=== PATIENT | male | born 1970 | race Caucasian/White ===

== ENCOUNTER 2018-06-08 19:20 | Inpatient (IN) | payer SELFPAY ==
[~2018-06-08] VITALS: Ht 182.9 cm; Wt 87.7 kg
[2018-06-08] MEDS ORDERED: NALOXONE 0.4 MG/ML VIAL. IV ONE (20:45)
[2018-06-08] MEDS ORDERED: MVI, ADULT NO.4 WITH VIT K 10 ML, FOLIC ACID INJ 1 MG, THIAMINE INJ 100 MG in IV NORMAL... IV ONE ×4 (20:45)
[2018-06-08 20:59] LABS: BASO % 1 % (0-3); EOS # 0.1 x10^3/uL (0.0-0.7); EOS % 3 % (0-3); HEMATOCRIT 48.1 % (39.0-53.0); HEMOGLOBIN 16.4 g/dL (13.0-17.5); LYMPH # 1.5 x10^3/uL (1.0-4.8); LYMPH % 28 % (24-48); MEAN CORPUSCULAR HEMOGLOBIN 32 pg (25-35); MEAN CORPUSCULAR HGB CONC 34 g/dL (31-37); MEAN CORPUSCULAR VOLUME 94 fL (79-100); MONO # 0.3 x10^3/uL (0.0-1.1); MONO % 6 % (0-9); NEUT # 3.4 x10^3uL (1.8-7.7); NEUT % 64 % (31-73); PLATELET COUNT 179 x10^3/uL (140-400); RED BLOOD COUNT 5.09 x10^6/uL (4.30-5.70); RED CELL DISTRIBUTION WIDTH 13.5 % (11.5-14.5); WHITE BLOOD COUNT 5.3 x10^3/uL (4.0-11.0)
--- NOTE | 2018-06-09 00:38 | PHYS DOC ---
Past History Past Medical History: Alcoholism Past Surgical History: No Surgical History Alcohol Use: Heavy Drug Use: None Adult General Chief Complaint Chief Complaint: ALTERED MENTAL STATUS HPI HPI 48-year-old male presents via EMS with altered mental status. Patient does not really answer questions. His eyes do open spontaneously and to commands. He did say that he drank a liter of vodka and then goes back to sleep. He denies any pain. Review of Systems Review of Systems Constitutional: Denies fever or chills [] Eyes: Denies change in visual acuity, redness, or eye pain [] HENT: Denies nasal congestion or sore throat [] Respiratory: Denies cough or shortness of breath [] Cardiovascular: No additional information not addressed in HPI [] GI: Denies abdominal pain, nausea, vomiting, bloody stools or diarrhea [] : Denies dysuria or hematuria [] Musculoskeletal: Denies back pain or joint pain [] Integument: Denies rash or skin lesions [] Neurologic: Intoxicated[] Endocrine: Denies polyuria or polydipsia [] All other systems were reviewed and found to be within normal limits, except as documented in this note. Current Medications Current Medications Current Medications Medications (Trade) Dose Ordered Sig/Kai Start Time Stop Time Status Last Admin Dose Admin Multivitamins/ Minerals 10 ml/ Folic Acid 1 mg/ Thiamine HCl 100 mg/Sodium Chloride 1,011.2 ml @ 0 mls/hr 1X ONCE 06/08/18 20:45 06/08/18 20:46 DC 06/08/18 20:45 1,000 MLS/HR Naloxone HCl (Narcan) 0.4 mg 1X ONCE 06/08/18 20:45 06/08/18 20:46 DC Allergies Allergies Allergies Coded Allergies Type Severity Reaction Last Updated Verified No Known Drug Allergies 06/08/18 No Physical Exam Physical Exam Constitutional: Well developed, well nourished, no acute distress, non-toxic appearance. [] HENT: Normocephalic, atraumatic, bilateral external ears normal, oropharynx moist, no oral exudates, nose normal. [] Eyes: PERRLA, EOMI, conjunctiva normal, no discharge. [] Neck: Normal range of motion, no tenderness, supple, no stridor. [] Cardiovascular: tachycardia, no murmur [] Lungs & Thorax: Bilateral breath sounds clear to auscultation [] Abdomen: Bowel sounds normal, soft, no tenderness, no masses, no pulsatile masses. [] Skin: Warm, dry, no erythema, no rash. [] Back: No tenderness, no CVA tenderness. [] Extremities: No tenderness, no cyanosis, no clubbing, ROM intact, no edema. [] Neurologic: Alert, intoxicated [] Psychologic: Intoxicated[] Current Patient Data Vital Signs Vital Signs Date Time Temp Pulse Resp B/P (MAP) Pulse Ox O2 Delivery O2 Flow Rate FiO2 06/08/18 20:20 66 18 126/70 (88) 96 Room Air 06/08/18 19:52 97.9 EKG EKG Sinus rhythm, rate 64, normal axis, no ST elevations or depressions.[] Radiology/Procedures Radiology/Procedures [] Course & Med Decision Making Course & Med Decision Making Pertinent Labs and Imaging studies reviewed. (See chart for details) Patient's labs are unremarkable except for his alcohol of 440. We gave him a banana bag. After the patient rested woke up, he was unaware that EMS brought him to the hospital. He then stated that he has been having suicidal thoughts for a while. He has no specific plan but mention the person he was staying with had a gun and he might use that. We have ordered a psych consult. The psychiatric facilities will not take the patient was his alcohol is below 100. His repeat alcohol level was 283. We will admit him to the hospital. Dr. Michael has accepted the patient for admission. [] Dragon Disclaimer Dragon Disclaimer This electronic medical record was generated, in whole or in part, using a voice recognition dictation system. Departure Departure: Referrals: PCP,ELADIA (PCP) CHARANJIT BRAVO DO Jun 09, 2018 00:38
[2018-06-09 01:36] LABS: ALBUMIN 3.5 g/dL (3.4-5.0); BARBITURATES NEG (NEG); BENZODIAZEPINES NEG (NEG); CALCIUM 8.5 mg/dL (8.5-10.1); CANNABINOIDS NEG (NEG); COCAINE NEG (NEG); CREATININE 0.8 mg/dL (0.7-1.3); GFR 104.1; METHADONE NEG (NEG); OPIATES NEG (NEG); PHENCYCLIDINE NEG (NEG); POTASSIUM 3.7 mmol/L (3.5-5.1); TOTAL BILIRUBIN 0.5 mg/dL (0.2-1.0)
[2018-06-09 02:27] LABS: AMPHETAMINE/METHAMPHETAMINE NEG (NEG)
[2018-06-09 02:33] LABS: BILIRUBIN,URINE NEG (NEG); CLARITY,URINE CLEAR; COLOR,URINE YELLOW; GLUCOSE,URINE NEG (NEG)
[2018-06-09 02:34] LABS: BACTERIA,URINE 0 /HPF (0-FEW); NITRITE,URINE NEG (NEG); RBC,URINE 0 /HPF (0-2); SQUAMOUS EPITHELIAL CELL,UR OCC /LPF; UROBILINOGEN,URINE 0.2 mg/dL (0.2 mg/dL); WBC,URINE 0 /HPF (0-4)
[2018-06-09 03:53] VITALS: BP 121/64
[2018-06-09] MEDS ORDERED: IV RINGERS SOLUTION,LACTATED 1,000 ML IV SCH (04:00)
[2018-06-09] MEDS ORDERED: QUET100T4 PO (04:17)
[2018-06-09] MEDS ORDERED: oxyCODONE/APAP 5/325 1 TAB TABLET PO PRN (04:30)
[2018-06-09] MEDS: IV DEXTROSE 5 %-0.45 % NACL 1,000 ML IV SCH ×2 (04:57→23:08)
[2018-06-09 05:23] VITALS: BP 130/64
[2018-06-09] MEDS: MORPHINE SULFATE 4 MG/ML DISP.SYRIN. IV PRN ×3 (07:34→20:02)
--- NOTE | 2018-06-09 08:58 | RAD ---
Single view pelvis and two-view right hip dated 06/09/2018. No comparison available. Clinical data indication: Hip pain for 2 days. FINDINGS: Single AP view pelvis shows normal bony alignment. No displaced fracture. Pelvic ring is intact. No acute osseous or articular abnormality. 2 views right hip show normal bony alignment. No displaced fracture. No periostitis or bone destruction. IMPRESSION: No acute findings. Electronically signed by: Gregory May MD (06/09/2018 8:56 AM) [id number]
[2018-06-09 10:23] VITALS: BP 132/72
[2018-06-09] MEDS ORDERED: ONDANSETRON PF 4 MG/2 ML VIAL. IV PRN (10:45)
[2018-06-09] MEDS ORDERED: HALOPERIDOL LACT 5 MG/ML VIAL. IM PRN (12:15)
[2018-06-09] MEDS ORDERED: cloNIDine HCL 0.1 MG TABLET PO PRN (12:15)
[2018-06-09] MEDS ORDERED: LORazepam 2 MG/ML VIAL IV PRN (12:15)
[2018-06-09] MEDS ORDERED: chlordiazePOXIDE HCL 25 MG CAPSULE PO PRN ×2 (12:15)
[2018-06-09] MEDS ORDERED: diphenhydrAMINE 50 MG/ML VIAL IVP PRN (12:15)
[2018-06-09] MEDS: LORazepam 2 MG/ML VIAL IV PRN ×2 (12:18→20:02)
--- NOTE | 2018-06-09 12:52 | HP ---
ADMIT DATE: 06/09/2018 HISTORY OF PRESENT ILLNESS: The patient is a 48-year-old male patient, who was brought to the Emergency Room by emergency medical service personnel with altered mental status. He was unable to answer any questions when arrived. His eyes do open spontaneously and to command he did say that he drank a liter of vodka and then he goes back to sleep. He denied any pain. He was extensively investigated in the Emergency Room. He has had lab work, which was mostly unremarkable except elevated AST, ALT. Urinalysis was unremarkable and toxic screen was positive for alcohol with a blood alcohol level of 440 mg and was admitted for observation. PAST MEDICAL HISTORY: Unremarkable except for chronic alcoholism and he said that he has been drinking alcohol heavily for the last 15 years. He drinks a fifth of vodka every day. PAST SURGICAL HISTORY: Significant for cervical spine fusion and left knee arthroscopic surgery. ALLERGIES: He has no known drug allergies. MEDICATIONS: He is actually on Seroquel prescribed by physician in [place], although he has not been taking it as he ran out of it. FAMILY HISTORY: He has a brother and a sister, both younger and healthy. His father at the age of 23 because of Marfan syndrome and aortic root rupture. His mother at age of 53 because of bone cancer. SOCIAL HISTORY: He is , has son and daughter. He does smoke and drink alcohol. 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 REVIEW OF SYSTEMS: The patient denied any blurring of vision, cataract, glaucoma or macular degeneration. Denied any earache, tinnitus or sensorineural deafness. Denied any nosebleeds, stuffy nose or postnasal drip. Denied any sore throat, sore tongue, toothache, hoarseness of voice or difficulty swallowing. Denied any nausea, vomiting, diarrhea or constipation. Denied any hematemesis, melena or hematochezia. Denied any dysuria, frequency or hematuria. Denied any chest pain, shortness of breath, orthopnea, or paroxysmal nocturnal dyspnea. His main complaint was pain in his right hip joint and he did have an x-ray done, which was unremarkable. LABORATORY DATA: Showed a white cell count of 5300, hemoglobin 16, hematocrit 48, MCV 94 and platelet count of 179,000 with normal manual differential. His chemistry showed serum sodium of 145, potassium 3.7, chloride 107, bicarbonate 26, anion gap of 12, BUN 9, creatinine 0.8, estimated GFR was 104 mL per minute. His glucose was 86, calcium was 8.5. Total bilirubin and alkaline phosphatase normal. AST, ALT were elevated. Total protein was 7, albumin was 3.5. Urinalysis showed the urine was yellow, clear with a pH of 6.5, specific gravity of 1.010. The urine was negative for protein, glucose, ketones, blood, nitrite and leukocyte esterase. No rbc's, no wbc's, and no bacteria. Toxic screen was negative except for blood alcohol level of 440 mg/dL. He did have an x-ray of his right hip joint, which showed that no displaced fracture. The pelvic ring is intact. No acute osseous or articular abnormality. There is no acute finding. ASSESSMENT AND PLAN: The patient was admitted with alcohol intoxication and by the time I saw him he started having shakes and apparently has had alcohol withdrawal as well as alcohol withdrawal seizures. We will start him on alcohol withdrawal protocol, banana bag and we will monitor him closely. TIAN ASHTON MD DR: RICHARD/bienvenido JOB#: [id number] / [id number]
[2018-06-09 14:31] VITALS: BP 136/70
[2018-06-09 18:54] VITALS: BP 125/81
[2018-06-09] MEDS: QUEtiapine 100 MG TABLET. PO SCH (20:49)
[2018-06-09 22:00] VITALS: BP 122/79
[2018-06-10] MEDS: MORPHINE SULFATE 4 MG/ML DISP.SYRIN. IV PRN (02:17)
[2018-06-10 05:29] VITALS: BP 120/69
[2018-06-10] MEDS: IV DEXTROSE 5 %-0.45 % NACL 1,000 ML IV SCH ×2 (07:10→20:30)
[2018-06-10] MEDS ORDERED: MVI, ADULT NO.4 WITH VIT K 10 ML, THIAMINE INJ 100 MG, FOLIC ACID INJ 1 MG in IV NORMAL... IV SCH ×4 (09:00)
[2018-06-10] MEDS: MVI, ADULT NO.4 WITH VIT K 10 ML, THIAMINE INJ 100 MG, FOLIC ACID INJ 1 MG in IV NORMAL... IV SCH ×4 (09:10)
[2018-06-10] MEDS: LORazepam 2 MG/ML VIAL IV PRN ×3 (09:11→20:31)
[2018-06-10 11:00] VITALS: BP 125/46
--- NOTE | 2018-06-10 12:41 | EKG ---
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
[2018-06-10 14:44] VITALS: BP 151/88
[2018-06-10 19:20] VITALS: BP 134/81
[2018-06-10] MEDS: QUEtiapine 100 MG TABLET. PO SCH (20:31)
[2018-06-10 22:10] VITALS: BP 130/78
--- NOTE | 2018-06-10 23:21 | PN ---
DATE: 06/10/2018 SUBJECTIVE: The patient is resting, slightly propped up in bed, in no apparent distress. He is awake, alert, continued to be extremely concerned about his alcohol withdrawal seizures. He is still very shaky and would like to stay one more night. He continues to be on a banana bag and alcohol withdrawal protocol. His blood alcohol level is down to less than 10 mg. OBJECTIVE: GENERAL: On examining him today, he looked well and was clearly in no apparent respiratory distress. No pallor, jaundice, cyanosis, or thyromegaly. No jugular venous distension. No lower limb edema. VITAL SIGNS: His heart rate was 54, blood pressure was 120/69, temperature was 98.7, respiratory rate was 18, and oxygen saturation was 97%. HEAD, EYES, EARS, NOSE, AND THROAT: Showed normocephalic, atraumatic. NECK: Supple. HEART: Showed normal first and second heart sounds. No gallop, rub, or murmur. CHEST: Clear to auscultation. No crepitation or rhonchi. ABDOMEN: Distended, soft, nontender. No guarding or rigidity. No organomegaly. All hernial orifice intact. Bowel sounds normal. NEUROLOGIC: He was awake, alert, continued to be somewhat tremulous, but otherwise all cranial nerves intact. He moves extremities without difficulty. His intake over the last 24 hours was 2660, output was 500. LABORATORY WORK: Showed that it has elevated AST, ALT; however, all his electrolytes, BUN and creatinine are within acceptable range. ASSESSMENT: 1. Acute alcohol intoxication. 2. Acute alcohol withdrawal. PLAN: Continue with current plan of management. I have explained to him that we can discharge him tomorrow with a tapering course of Ativan and give prescription for his Seroquel. TIAN ASHTON MD DR: RICHARD/bienvenido JOB#: [id number] / [id number]
[2018-06-11 05:30] VITALS: BP 121/79
[2018-06-11 06:45] LABS: CALCIUM 8.7 mg/dL (8.5-10.1); CREATININE 0.7 mg/dL (0.7-1.3); GFR 121.4; MAGNESIUM 1.8 mg/dL (1.8-2.4); POTASSIUM 3.9 mmol/L (3.5-5.1)
[2018-06-11] MEDS: MVI, ADULT NO.4 WITH VIT K 10 ML, THIAMINE INJ 100 MG, FOLIC ACID INJ 1 MG in IV NORMAL... IV SCH ×4 (09:00)
[2018-06-11] MEDS: IV DEXTROSE 5 %-0.45 % NACL 1,000 ML IV SCH (09:50)
[2018-06-11 10:45] VITALS: BP_SYST 132; BP_SYST 147; BP_DIAS 77; BP_DIAS 78
[2018-06-11] MEDS ORDERED: LORA-254 PO (12:00)
--- NOTE | 2018-06-11 21:22 | DS ---
DATE OF DISCHARGE: 06/11/2018 HOSPITAL COURSE: The patient is a 48-year-old male patient who was with altered mental status. He was brought to the Emergency Room by emergency medical service personnel. He was unable to answer any question when arrived. His eyes opened spontaneously and to command. He did say that he drank a liter of vodka and then he goes back to sleep. He was extensively investigated in the Emergency Room, his toxic screen was positive for alcohol with a blood alcohol level of 440 mg. He also had transaminitis. He was started on banana bag and alcohol withdrawal protocol. He was tremulous and shaky; however, when I saw him today, he has had no more shakes and he was not tremulous and was awake, alert with a steady gait. PHYSICAL EXAMINATION: GENERAL: When I examined him, he was sitting on the edge of the bed comfortably in no apparent respiratory distress. No pallor, jaundice, cyanosis, or thyromegaly. No jugular venous distension. No lower limb edema. VITAL SIGNS: His heart rate was 77, blood pressure 132/78, temperature was 98.5, respiratory rate 20, and oxygen saturation was 98%. HEAD, EYES, EARS, NOSE AND THROAT: Normocephalic, atraumatic. NECK: Supple. HEART: Showed normal first and second heart sounds with no gallop, rub or murmur. CHEST: Clear to auscultation. No crepitation or rhonchi. ABDOMEN: Distended, soft, nontender. NEUROLOGIC: He is awake, alert, responding appropriately. All cranial nerves intact. EXTREMITIES: He moves extremities without difficulty, ambulates without assistance or assistive devices. LABORATORY DATA: Showed a white cell count 5300, hemoglobin 16, hematocrit 48, MCV 94 and platelet count 279,000. Serum sodium was 139, potassium 3.9, chloride 105, bicarbonate 25, anion gap of 9, BUN 7, creatinine 0.7, estimated GFR was 121 mL per minute. His glucose was 89, calcium was 8.7, and magnesium was 1.8. His blood alcohol level was down to less than 10. DISCHARGE MEDICATIONS: He was discharged home to continue on Seroquel 100 mg once a day at bedtime and also add Ativan 1 mg 4 times a day for 2 days, 1 mg 3 times a day for 2 days, 1 mg twice a day for 2 days and 1 mg once a day for 2 days. FINAL DISCHARGE DIAGNOSES: Alcohol intoxication, alcohol withdrawal syndrome. TIAN ASHTON MD DR: RICHARD/bienvenido JOB#: [id number] / [id number]
== END 2018-06-11 12:55 | disposition home or self-care (01) | DRG 897 ==
LOC: ER 19:20 → 1 SOUTH 06-09 03:24
PROVIDERS: ADMIT Internal Medicine; ATTEND Internal Medicine
DX: F10.229 Alcohol dependence with intoxication, unspecified (principal); F10.239 Alcohol dependence with withdrawal, unspecified; F17.200 Nicotine dependence, unspecified, uncomplicated; R56.9 Unspecified convulsions; Y90.8 Blood alcohol level of 240 mg/100 ml or more; Z80.8 Family history of malignant neoplasm of other organs or systems; R74.0 Nonspecific elevation of levels of transaminase and lactic acid dehydrogenase [LDH]; Z82.79 Family history of other congenital malformations, deformations and chromosomal abnormalities; Z98.1 Arthrodesis status
CPT/HCPCS: 36415; 73502; 80048; 80053; 80307; 81001; 83735; 85025; 93005; 96365; G0480; J2060; J2270; J2405; 99285-25; G0479; J7030